=== PATIENT | female | born 1990 | race Caucasian/White ===

== ENCOUNTER 2024-07-05 07:42 | Inpatient (IN) ==
[2024-07-05] MEDS ORDERED: Nalbuphine 10 MG/ML 1 ML VIAL IV PRN (08:27)
[2024-07-05] MEDS: Lidocaine 2% JELLY 6 ML Topical TOPICAL ONE (10:45)
[2024-07-05] MEDS: Oxytocin 10 UNITS/ML 1 ML VIAL IM ONE (10:50)
[2024-07-05] MEDS: Lidocaine 1% VIAL 10 MG/ML 30 ML VIAL INJ PRN (10:53)
[2024-07-05 11:29] LABS: ABS Lymphocytes 1.4 10^3/uL (1.0-4.8); Eosinophil % 0.1 %; Hemoglobin 13.8 g/dL (11.5-14.3); Lymphocyte % 6.9 %; Mean Corpuscular Hemoglobin 32.4 pg (27-33); Mean Corpuscular Hgb Conc 34.5 g/dL (31-36); Platelet Count 114 10^3/uL (150-450); Red Blood Count 4.26 10^6/uL (3.63-4.92); Red Cell Distribution Width 12.7 % (12-17); White Blood Count 20.4 10^3/uL (3.8-11.8)
[2024-07-05] MEDS ORDERED: Glycerin ADULT 2.4 gm SUPP PR PRN (11:38)
[2024-07-05 11:51] LABS: Albumin 3.6 g/dL (3.2-5.2); Albumin/Globulin Ratio 1.3 (1-3); Calcium 8.9 mg/dL (8.6-10.3); Creatinine, Serum 0.68 mg/dL (0.51-0.95); Globulin 2.8 g/dL (2-4); Potassium 3.7 mmol/L (3.5-5.0); Total Bilirubin 0.5 mg/dL (0.2-1.0); Total Protein 6.4 g/dL (6.4-8.9); eGFR CKD-EPI 115.7 (>60)
[2024-07-05] MEDS ORDERED: Lactated Ringers 1000 ml BAG 1,000 ML IV SCH (12:00)
[2024-07-05] MEDS: Witch Hazel PAD JAR TOPICAL PRN (12:10)
[2024-07-05] MEDS: Dibucaine 1% OINT 28.35 GM TUBE PR PRN (12:11)
[2024-07-05 12:32] LABS: HIV 4th Generation Nonreactive (Nonreactive)
[2024-07-05 12:40] LABS: Hepatitis C Antibody Negative (Negative)
[2024-07-05] MEDS: Oxytocin in LR 20,000 MILLI.UNIT/1,000 ML BAG IV SCH (15:00)
[2024-07-05] MEDS: Acetaminophen IV 1 GM/100ML 1,000 MG/100 ML BAG IV ONE (15:44)
[2024-07-05] MEDS: Oxytocin in LR 20,000 MILLI.UNIT/1,000 ML BAG IV ONE (20:07)
[2024-07-05] MEDS: Buffered Lidocaine 1% SYRIN 1 ml INTRADERM ONE (20:07)
[2024-07-05] MEDS: Lactated Ringers 1000 ml BAG 1,000 ML IV ONE (20:07)
[2024-07-05] MEDS: Lactated Ringers 1000 ml BAG 1,000 ML IV SCH (20:07)
[2024-07-05] MEDS: Oxytocin 10 UNITS/ML 1 ML VIAL ONE (20:08)
[2024-07-06 06:39] LABS: Hematocrit 25.2 % (35-45); Hemoglobin 8.9 g/dL (11.5-14.3); Mean Corpuscular Hemoglobin 33.3 pg (27-33); Mean Corpuscular Hgb Conc 35.3 g/dL (31-36); Mean Corpuscular Volume 94.4 fL (80-97); Red Blood Count 2.67 10^6/uL (3.63-4.92); Red Cell Distribution Width 12.4 % (12-17)
[2024-07-06 07:31] LABS: ABS Basophils 0.1 10^3/uL (0.0-0.1); ABS Eosinophils 0.2 10^3/uL (0.0-0.5); ABS Lymphocytes 2.5 10^3/uL (1.0-4.8); ABS Monocytes 0.9 10^3/uL (0.0-0.9); ABS Neutrophils 10.4 10^3/uL (1.5-7.6); ABS Nucleated RBC 0.01 10^3/ul; Eosinophil % 1.1 %; Lymphocyte % 17.8 %; Mean Platelet Volume 11.9 fL (7.5-11.2); Nucleated Red Blood Cells % 0.1 %/100WBC (0.0-0.8); Platelet Count 82 10^3/uL (150-450)
[2024-07-06] MEDS: Iron Sucrose 200 MG in NS 0.9% 100 ml BAG 100 ML IVPB ONE (11:15)
[2024-07-07 08:07] VITALS: BP 107/65
[2024-07-08 21:22] LABS: Syphilis IgG Screen Nonreactive
== END 2024-07-07 15:21 | disposition home or self-care (01) | DRG 560 ==
LOC: MCHOBOUT 07:42 → MCHOB 07:50
PROVIDERS: ADMIT Advanced Practice Midwife; ATTEND Advanced Practice Midwife